=== PATIENT | female | born 1965 | race Caucasian/White ===

== ENCOUNTER 2017-09-03 02:07 | Emergency (ER) | payer OTHER ==
[~2017-09-03] VITALS: Ht 172.7 cm; Wt 94.5 kg
[2017-09-03 02:10] VITALS: TEMP 97.5
[2017-09-03] MEDS ORDERED: CLEOCIN HCL300 MG PO ×2 (03:38→10:17)
[2017-09-03 03:59] VITALS: BP 135/92; PULSE 88
== END 2017-09-03 04:03 | disposition home or self-care (01) ==
LOC: COL.ER 02:07
DX: S51.811A Laceration without foreign body of right forearm, initial encounter (principal); W26.8XXA Contact with other sharp object(s), not elsewhere classified, initial encounter; Z23 Encounter for immunization